=== PATIENT | male | born 1955 | race Caucasian/White ===

== ENCOUNTER 2022-01-06 06:46 | Day surgery (SDC) | payer MEDICAID, OTHER ==
[~2022-01-06 06:46] MED LIST: Lactated Ringers 1,000 ML IV SCH; Sodium Chloride 0.9% 10 ML Syringe FLUSH PRN
[2022-01-06] MEDS ORDERED: Lidocaine 1% PF 2 ML SDV INJECT ONE (06:47)
[2022-01-06] MEDS ORDERED: Propofol 200 MG/20 ML SDV IV ONE (06:47)
[2022-01-06 13:41] VITALS: BP 125/68; PULSE 56
== END 2022-01-06 09:25 | disposition home or self-care (01) ==
LOC: FB.SDS 06:46
PROVIDERS: ATTEND Surgery
DX: Z12.11 Encounter for screening for malignant neoplasm of colon (principal); D12.2 Benign neoplasm of ascending colon; K56.699 Other intestinal obstruction unspecified as to partial versus complete obstruction; Z98.890 Other specified postprocedural states; Z80.0 Family history of malignant neoplasm of digestive organs
CPT/HCPCS: 00811-QZ; 88305; J2704; J7120

== ENCOUNTER 2025-05-22 06:51 | Emergency (ER) | payer MEDICAID, OTHER ==
[2025-05-22 07:36] LABS: BASOPHILS ABSOLUTE AUTO 0.0 x10-3/uL (0.0-0.3); BASOPHILS PERCENT AUTO 0.3 % (0.3-3.8); EOSINOPHILS ABSOLUTE AUTO 0.1 x10-3/uL (0.0-0.6); EOSINOPHILS PERCENT AUTO 0.5 % (0.1-6.8); LYMPHOCYTES ABSOLUTE AUTO 0.9 x10-3/uL (0.5-4.5); LYMPHOCYTES PERCENT AUTO 7.0 % (15.8-45.3); MEAN PLATELET VOLUME 8.5 fL (6.7-11.0); MONOCYTES ABSOLUTE AUTO 1.4 x10-3/uL (0.0-1.2); MONOCYTES PERCENT AUTO 10.3 % (5.5-15.2); NEUTROPHILS ABSOLUTE AUTO 10.9 x10-3/uL (1.7-6.9); NEUTROPHILS PERCENT AUTO 81.9 % (40.3-71.8); PLATELET COUNT,PLT 198 x10(3)uL (117-477); RED BLOOD CELL COUNT 4.10 x10(6)uL (3.90-5.90); RED CELL DISTRIBUTION WIDTH 14.5 % (12.4-15.0); WHITE BLOOD CELL COUNT,WBC 13.4 x10-3/uL (3.2-10.1)
[2025-05-22 07:42] LABS: BLOOD UREA NITROGEN,BUN 28 mg/dL (7-18); CARBON DIOXIDE,CO2 26 mmol/L (21-32); CHLORIDE,CL 103 mmol/L (100-110); CREATININE 1.5 mg/dL (0.70-1.30); ESTIMATED GFR 50 mL/min (>60); GLUCOSE RANDOM 98 mg/dL (80-116); POTASSIUM,K 4.1 mmol/L (3.5-5.3); SODIUM,NA 139 mmol/L (135-145)
[2025-05-22 07:47] LABS: A/G RATIO 0.6; ALANINE AMINOTRANSFERASE,ALT 21 U/L (12-36); ASPARTATE AMNIOTRANSFERASE,AST 19 IU/L (5-25); BILIRUBIN TOTAL 0.6 mg/dL (0.1-1.3); PROTEIN TOTAL,TP 6.3 g/dL (6.0-8.0)
[2025-05-22 07:49] LABS: LACTIC ACID 1.5 mmol/L (0.4-2.0)
[2025-05-22] MEDS: Metoprolol Tartrate 5 MG/5 ML SDV IVPUSH ONE (08:13)
[2025-05-22 08:14] VITALS: BP 91/60
[2025-05-22 08:16] LABS: APPEARANCE,URINE TURBID (CLEAR); GLUCOSE,URINE NORMAL (NORMAL); OCCULT BLOOD,URINE LARGE (NEGATIVE)
[2025-05-22] MEDS: Iopamidol 755 Mg/ML 100 ML Bottle IV SCH (09:32)
[2025-05-22] MEDS ORDERED: Clindamycin Phosphate 600 MG in Dextrose 5% in Water 50 ML IV STA (09:36)
[2025-05-22 09:58] VITALS: PULSE 114
[2025-05-22] MEDS: Clindamycin in 0.9 % Sod Chlor 600 MG in Premix Bag 1 BAG IV ONE (10:03)
== END 2025-05-22 13:38 ==
LOC: FB.ED 06:51
DX: R55 Syncope and collapse (principal); I48.91 Unspecified atrial fibrillation; E86.0 Dehydration; N39.0 Urinary tract infection, site not specified; N17.9 Acute kidney failure, unspecified; R79.89 Other specified abnormal findings of blood chemistry
CPT/HCPCS: 36415; 70450; 71045; 71260; 80053; 81001; 83605; 83880; 84484; 85025; 86140; 87086; 87088; 87186; 93005; 96365; 96375; 99285; J0696; J0737; J1160; J3490; Q9967; 93010

== ENCOUNTER 2025-05-29 08:17 | Inpatient (IN) | payer OTHER, MEDICARE ==
[2025-05-30] MEDS ORDERED: Ondansetron 4 MG Tab.DIS PO PRN (14:26)
[2025-05-30] MEDS ORDERED: [UNRECOGNIZED DRUG - OTHER] PO SCH (21:00)
[2025-05-31] MEDS: Cholecalciferol (Vitamin D3) 25 MCG Tab PO SCH (08:16)
[2025-05-31] MEDS: Metoprolol Succinate 100 MG Tab.ER PO SCH (08:18)
[2025-05-31] MEDS: Sodium Chloride 0.9% 10 ML Syringe FLUSH PRN (10:24)
[2025-06-02 06:23] LABS: BASOPHILS ABSOLUTE AUTO 0.1 x10-3/uL (0.0-0.3); BASOPHILS PERCENT AUTO 0.8 % (0.3-3.8); EOSINOPHILS ABSOLUTE AUTO 0.3 x10-3/uL (0.0-0.6); EOSINOPHILS PERCENT AUTO 4.8 % (0.1-6.8); LYMPHOCYTES ABSOLUTE AUTO 0.9 x10-3/uL (0.5-4.5); LYMPHOCYTES PERCENT AUTO 13.1 % (15.8-45.3); MEAN PLATELET VOLUME 7.7 fL (6.7-11.0); MONOCYTES ABSOLUTE AUTO 0.6 x10-3/uL (0.0-1.2); MONOCYTES PERCENT AUTO 9.4 % (5.5-15.2); NEUTROPHILS ABSOLUTE AUTO 4.8 x10-3/uL (1.7-6.9); NEUTROPHILS PERCENT AUTO 71.9 % (40.3-71.8); PLATELET COUNT,PLT 157 x10(3)uL (117-477); RED BLOOD CELL COUNT 3.18 x10(6)uL (3.90-5.90); RED CELL DISTRIBUTION WIDTH 14.6 % (12.4-15.0); WHITE BLOOD CELL COUNT,WBC 6.7 x10-3/uL (3.2-10.1)
[2025-06-02 06:31] LABS: ALANINE AMINOTRANSFERASE,ALT 31.0 U/L (12-36); CREATININE 1.0 mg/dL (0.70-1.30); EST CRCL DRUG DOSING (CG) 59.93 mL/min; ESTIMATED GFR 81.0 mL/min (>60)
[2025-06-09 06:59] LABS: BASOPHILS ABSOLUTE AUTO 0.1 x10-3/uL (0.0-0.3); BASOPHILS PERCENT AUTO 1.5 % (0.3-3.8); EOSINOPHILS ABSOLUTE AUTO 0.3 x10-3/uL (0.0-0.6); EOSINOPHILS PERCENT AUTO 4.7 % (0.1-6.8); LYMPHOCYTES ABSOLUTE AUTO 1.2 x10-3/uL (0.5-4.5); LYMPHOCYTES PERCENT AUTO 21.4 % (15.8-45.3); MEAN PLATELET VOLUME 7.2 fL (6.7-11.0); MONOCYTES ABSOLUTE AUTO 0.6 x10-3/uL (0.0-1.2); MONOCYTES PERCENT AUTO 10.9 % (5.5-15.2); NEUTROPHILS ABSOLUTE AUTO 3.5 x10-3/uL (1.7-6.9); NEUTROPHILS PERCENT AUTO 61.5 % (40.3-71.8); PLATELET COUNT,PLT 228 x10(3)uL (117-477); RED BLOOD CELL COUNT 3.24 x10(6)uL (3.90-5.90); RED CELL DISTRIBUTION WIDTH 14.5 % (12.4-15.0); WHITE BLOOD CELL COUNT,WBC 5.7 x10-3/uL (3.2-10.1)
[2025-06-09 07:14] LABS: ALANINE AMINOTRANSFERASE,ALT 45.0 U/L (12-36); CREATININE 1.0 mg/dL (0.70-1.30); EST CRCL DRUG DOSING (CG) 59.36 mL/min; ESTIMATED GFR 81.0 mL/min (>60)
[2025-06-12 10:32] VITALS: BP 104/47; PULSE 60
== END 2025-06-12 10:30 | disposition home or self-care (01) | DRG 947 ==
LOC: FB.MS 05-30 14:07
PROVIDERS: ADMIT Family Medicine; ATTEND Family Medicine
DX: R53.1 Weakness (principal); I26.93 Single subsegmental thrombotic pulmonary embolism without acute cor pulmonale; N10 Acute pyelonephritis; T83.59 Infection and inflammatory reaction due to prosthetic device, implant and graft in urinary system; I95.9 Hypotension, unspecified; G47.30 Sleep apnea, unspecified; I25.10 Atherosclerotic heart disease of native coronary artery without angina pectoris; N20.0 Calculus of kidney; I48.91 Unspecified atrial fibrillation; Z86.19 Personal history of other infectious and parasitic diseases; Z79.01 Long term (current) use of anticoagulants; Z79.899 Other long term (current) drug therapy; Z79.82 Long term (current) use of aspirin; Z95.1 Presence of aortocoronary bypass graft; Z98.890 Other specified postprocedural states
CPT/HCPCS: 36415; 82565; 84460; 85025; 97110-GO; 97110-GP; 97116-GP; 97161-GP; 97165-GO; 97530-GO; 97530-GP; 97535-GO; 99305; 99308; 99315; A9270-GY; J1335; J7040